=== PATIENT | male | born 1945 | race Caucasian/White ===

== ENCOUNTER → 2019-05-08 | Outpatient (CLI) | payer MEDICARE ==
--- NOTE | 2019-05-08 15:08 | US ---
EXAMINATION TYPE: US kidneys/renal and bladder DATE OF EXAM: 05/08/2019 COMPARISON: NONE CLINICAL HISTORY: R31.29 microscopic hematuria, N18.3. No pain at this time. Abnormal labs. Microsc opic hematuria. EXAM MEASUREMENTS: Right Kidney: 8.6 x 4.8 x 4.3 cm Left Kidney: 10.1 x 4.4 x 5.1 cm Right Kidney: Echogenic nonshadowing focus- 0.5 cm lower pole. Lower pole cystic appearing lesion - 1.5 x 1.5 x 1.5 cm. Left Kidney: Cystic appearing lesion in lower pole renal sinus= 1.5 x 1.4 x 2.0 cm. Echogenic foci v isualized, largest = 0.5 cm. Bladder: Anechoic. Bladder fold seen. Lesion seen adjacent to right wall, possible polyp or neoplas m = 0.5 x 0.6 cm Bilateral Jets seen IMPRESSION: 1. Nodular 5 mm lesion of the right lateral urinary bladder wall. Direct visualization is recommended to assess for polyp or neoplasm. 2. Bilateral nonobstructing renal calculi and simple appearing renal cysts.
== END | disposition home or self-care (01) ==
LOC: RADUSWWP 13:56
PROVIDERS: ATTEND Internal Medicine
DX: N20.0 Calculus of kidney (principal); N28.1 Cyst of kidney, acquired; N32.89 Other specified disorders of bladder
CPT/HCPCS: 76770

== ENCOUNTER 2019-05-17 11:52 | Day surgery (SDC) | payer MEDICARE ==
[2019-05-16 08:24] VITALS: BMI 20.5
[~2019-05-17 11:52] MED LIST: LACTATED RINGERS 1,000 ML IV SCH
[2019-05-17 12:25] VITALS: RESP 16; TEMP 97.4
[2019-05-17] MEDS ORDERED: LIDOCAINE 1% 20 ML VIAL (10MG/ML) FOR IV START INTRADERMA ONE (12:34)
[2019-05-17] MEDS ORDERED: PROPOFOL 10 MG/ML 20 ML VIAL IV ONE (13:03)
--- NOTE | 2019-05-17 13:26 | P.PCN ---
Date of Procedure: 05/17/19 Procedure(s) Performed: BRIEF HISTORY: Patient is a 74-year-old pleasant male scheduled for an elective colonoscopy as a part of evaluation of prior history of colon polyps. f PROCEDURE PERFORMED: Colonoscopy with biopsy. PREOPERATIVE DIAGNOSIS: History of colon polyps. IV sedation per Anesthesia. PROCEDURE: After informed consent was obtained, the patient, was brought into the endoscopy unit. IV sedation was administered by Anesthesia under continuous monitoring. Digital rectal examination was normal. Initially the Olympus CF-160 flexible video colonoscope was then inserted in the rectum, gradually advanced into the cecum without any difficulty. Careful examination was performed as the scope was gradually being withdrawn. Ileocecal valve and the appendiceal orifice were visualized and appeared normal. Prep was excellent. Mucosa of the cecum, ascending colon, transverse colon, descending colon, appeared normal. The sigmoid: There was a 3 minute a polyp that was removed by cold biopsy. Rest of the sigmoid colon, and rectum appeared normal. Scattered sigmoid diverticulosis seen. Retroflexion was performed in the rectum and no lesions were seen. The patient tolerated the procedure well. IMPRESSION: 3 mm sigmoid colon polyp status post removal by cold biopsy Scattered sigmoidal diverticulosis RECOMMENDATIONS: Findings of this examination were discussed with the patient as well as his family. He was advised to follow with the biopsy results. He'll have a repeat surveillance colonoscopy in 5 years from now based the biopsy results.
[2019-05-17 13:43] VITALS: BP 125/68; PULSE 59
== END 2019-05-17 14:09 | disposition home or self-care (01) ==
LOC: ORWHC2ENDO 11:52
PROVIDERS: ATTEND Internal Medicine Gastroenterology
DX: Z12.11 Encounter for screening for malignant neoplasm of colon (principal); K63.5 Polyp of colon; K57.30 Diverticulosis of large intestine without perforation or abscess without bleeding; Z86.010 Personal history of colon polyps; I49.1 Atrial premature depolarization; M19.90 Unspecified osteoarthritis, unspecified site; Z88.0 Allergy status to penicillin; Z88.1 Allergy status to other antibiotic agents; Z79.82 Long term (current) use of aspirin; Z98.890 Other specified postprocedural states
CPT/HCPCS: 88305; 45380; J2704

== ENCOUNTER 2020-03-06 19:31 | Emergency (ER) | payer MEDICARE ==
[2020-03-06] MEDS ORDERED: DIPH,PERTUS(ACELL)TETVAC-LF 0.5 ML VIAL IM ONE (20:16)
[2020-03-06] MEDS ORDERED: LIDOCAINE 1% INJ 10MG/ML (20 ML MDV) SQ STA (20:16)
--- NOTE | 2020-03-06 20:34 | ED ---
General Adult HPI - General Chief complaint: Wound/Laceration Stated complaint: R Finger Lac Time Seen by Provider: 03/06/20 20:05 Source: patient, RN notes reviewed, old records reviewed Mode of arrival: ambulatory Limitations: no limitations - History of Present Illness Initial comments: 75-year-old male patient with the chief complaint of laceration to distal index finger on right hand. Patient was a poorly cutting his head is using a hedge clipper he did have gloves on when he accidentally cut through the [place] patient is a superficial laceration to the distal aspect of his digit. Full range of motion of digit. No tenderness the area. No other injury. Systemic: Pt denies fatigue, fever/chills, rash. Pt denies weakness, night sweats, weight loss. Neuro: Pt denies headache, visual disturbances, syncope or pre-syncope. HEENT: Pt denies ocular discharge or irritation, otalgia, rhinorrhea, pharyngitis or notable lymphadenopathy. Cardiopulmonary: Pt denies chest pain, SOB, heart palpitations, dyspnea on exertion. Abdominal/GI: Pt denies abdominal pain, n/v/d. : Pt denies dysuria, burning w/ urination, frequency/urgency. Denies new onset urinary or bowel incontinence. MSK: Pt denies myalgia, loss of strength or function in extremities. Neuro: Pt denies new onset weakness, paresthesias. - Related Data Home Medications Medication Instructions Recorded Confirmed Multivitamin/Iron/Folic Acid 1 tab PO DAILY 10/08/13 05/17/19 [Centrum Complete Multivit Tab] Aspirin [Adult Low Dose Aspirin EC] 81 mg PO DAILY 05/16/19 05/17/19 Allergies Allergy/AdvReac Type Severity Reaction Status Date / Time cephalexin monohydrate Allergy Itching Verified 03/06/20 19:45 [From Keflex] clindamycin Allergy Itching Verified 03/06/20 19:45 erythromycin base Allergy Rash/Hives Verified 03/06/20 19:45 [Erythromycin Base] Penicillins Allergy Unknown Verified 03/06/20 19:45 Childhood tetracycline [Tetracycline] Allergy Rash/Hives Verified 03/06/20 19:45 Review of Systems ROS Statement: Those systems with pertinent positive or pertinent negative responses have been documented in the HPI. ROS Other: All systems not noted in ROS Statement are negative. Past Medical History Past Medical History: Cancer, GERD/Reflux, Osteoarthritis (OA), Syncope Additional Past Medical History / Comment(s): HX RENAL CALCULI, DECREASED GFR., BPH, PAC'S, GUILLAIN-BARRE, HX COLON POLYPS, BASAL CELL SKIN CANCER. History of Any Multi-Drug Resistant Organisms: None Reported Past Surgical History: Joint Replacement, Orthopedic Surgery, Tonsillectomy Additional Past Surgical History / Comment(s): BILATERAL HIP REPLACEMENTS, LEFT ELBOW FX SURGERY, DRAINAGE OF ABSCESS IN ABDOMEN Past Anesthesia/Blood Transfusion Reactions: Motion Sickness, Postoperative Nausea & Vomiting (PONV) Additional Past Anesthesia/Blood Transfusion Reaction / Comment(s): "SENSITIVE TO NARCOTICS" Past Psychological History: No Psychological Hx Reported Smoking Status: Never smoker Past Alcohol Use History: Rare Past Drug Use History: None Reported - Past Family History Mother Additional Family Medical History / Comment(s): TB, Sister(s) Family Medical History: Cancer Additional Family Medical History / Comment(s): BREAST CANCER General Exam - General Exam Comments Initial Comments: Constitutional: NAD, AOX3, Pt has pleasant affect. HEENT: NC/AT, trachea midline, neck supple, no lymphadenopathy. External ears appear normal, without discharge. Mucous membranes moist. EOM intact. There is no scleral icterus. No pallor noted. Cardiopulmonary: RRR, no murmurs, rubs or gallops, no JVD noted. Lungs CTAB. Abdominal exam: Abdomen soft and non-distended. Neuro: CN II-XII grossly intact. MSK: 1 cm laceration to the distal aspect of the second digit of the left hand. Full active range of motion of digit. Laceration is irrigated approximately 2 simple interrupted sutures. Capillary refill <2 seconds. Limitations: no limitations Course Vital Signs 03/06/20 03/06/20 19:41 21:22 Temperature 98.1 F 97.8 F Pulse Rate 72 69 Respiratory 20 18 Rate Blood Pressure 152/90 170/97 O2 Sat by Pulse 99 100 Oximetry Medical Decision Making - Medical Decision Making 75-year-old male patient was seen for laceration. Patient was irrigated and repaired. Patient tetanus updated. Will be discharged with return precautions. Case discussed with Dr. Blake. Disposition Clinical Impression: Laceration Disposition: HOME SELF-CARE Condition: Stable Instructions (If sedation given, give patient instructions): Laceration (ED) Additional Instructions: Follow-up with primary care provider tomorrow. Return to ER if any worsening symptoms. Return for suture removal in 7-10 days. Monitor for signs of infection, redness, drainage, worsening pain. If these symptoms occur then return to emergency department. Is patient prescribed a controlled substance at d/c from ED?: No Referrals: Wesly Byrd MD [Primary Care Provider] - 1-2 days
[2020-03-06] MEDS ORDERED: BACITRACIN OINT 1 EACH PACKET TOPICAL ONE (21:11)
[2020-03-06 21:24] VITALS: BP 170/97; PULSE 69; RESP 18; TEMP 97.8
== END 2020-03-06 21:22 | disposition home or self-care (01) ==
LOC: EC 19:31
DX: S61.210A Laceration without foreign body of right index finger without damage to nail, initial encounter (principal); M19.90 Unspecified osteoarthritis, unspecified site; Z88.1 Allergy status to other antibiotic agents; Z23 Encounter for immunization; Z88.0 Allergy status to penicillin; Z85.828 Personal history of other malignant neoplasm of skin; Z96.643 Presence of artificial hip joint, bilateral; W26.8XXA Contact with other sharp object(s), not elsewhere classified, initial encounter; Y93.89 Activity, other specified; Y92.89 Other specified places as the place of occurrence of the external cause
CPT/HCPCS: 90715; 90471; 99283; 12001; J2001

== ENCOUNTER → 2020-07-23 | Outpatient (CLI) | payer MEDICARE ==
--- NOTE | 2020-07-23 12:29 | P.SLEEP ---
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 I saw this patient approximately 3 years ago and his sleep center. At time the patient was having difficulties with sleep quality and he was reporting some fatigue upon arouse in the morning. He reported this. Sleep disturbance going on for many years and things got worse after that he retired. 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 At that time, his sleep study was done on 06/30/2017 and the patient was found to have mild snoring without evidence of any significant sleep breathing disorder. He had an AHI of 1.9. No evidence of any nocturnal oxygen desaturation. His sleep efficiency was adequate at 86% and he had adequate sleep architecture with some mild over representation of stage II sleep and diminished delta wave and REM. He did have some minimal occasional arousals and these were Castro arousals. As such, I do not see the need for any further treatment. I suggested the patient treat his comorbidities and improve his sleep hygiene measures and the patient is known to have some chronic pain and prostatism liver probably contributing to his nocturnal arousals. His overall sleep disease as stated with 86% and he was able to generate around 6 hours of sleep. No CPAP therapy was offered. On today's evaluation, the patient is coming in with similar symptoms. He still think that he is unable to generate enough number of hours of sleep that will make him refreshed during the day. He is expecting at least 7-8 hours of sleep. He goes to bed at various times and he tries to go to sleep somewhat between 9:00 and sometimes as far as 11 PM. Nevertheless, he is unable to generate sleep immediately and sometimes takes up to 45 minutes to fall sleep and he wakes up frequently middle of the night mainly to use the bathroom. He is not sure whether urination is doing management it's waking him up, however was awake, tries to go to the bathroom and has small amount of urine. He gets up at around 5:00 and sometimes he tries to go back to sleep and ultimately gets out of bed at around 7:30 AM in the morning. He is reportedly on of morning headaches. He is fatigued during the day. During his recent stay in the [facility], he got infected with a tick and further investigation including blood work rule out the possibility of Lyme's disease. He is covid 19 negative. He has no other major comorbidities. No anxiety. No depression.no recent weight gain is about 5 pounds over this past 3 years. He sometimes tries to take naps during the day that get him more refreshed. No excessive utilization of alcoholic beverages or caffeinated beverages. No restlessness in lower extremities. No grinding of the teeth. No bruxism. No head trauma. No CVA. He was off her trazodone by his primary care physician which she did not take. Review of Systems Constitutional: Reports daytime sleepiness, Reports fatigue Eyes: denies as per HPI, denies blurred vision, denies bulging eye, denies decreased vision, denies diplopia, denies discharge, denies dry eye, denies irritation, denies itching, denies pain, denies photophobia, denies loss of peripheral vision, denies loss of vision, denies tunnel vision/blind spots Ears, nose, mouth and throat: Denies headache, Denies sore throat Cardiovascular: Denies chest pain, Denies shortness of breath Respiratory: Reports snoring Gastrointestinal: Reports as per HPI Genitourinary: Reports as per HPI Musculoskeletal: Reports as per HPI Musculoskeletal: absent: ankle pain, ankle stiffness, ankle swelling Integumentary: Reports as per HPI Neurological: Reports as per HPI Psychiatric: Reports as per HPI Endocrine: Reports fatigue Hematologic/Lymphatic: Reports as per HPI Allergic/Immunologic: Reports as per HPI Past Medical History Past Medical History: Cancer, GERD/Reflux, Osteoarthritis (OA), Syncope Additional Past Medical History / Comment(s): HX RENAL CALCULI, DECREASED GFR., BPH, PAC'S, GUILLAIN-BARRE, HX COLON POLYPS, BASAL CELL SKIN CANCER. History of Any Multi-Drug Resistant Organisms: None Reported Past Surgical History: Joint Replacement, Orthopedic Surgery, Tonsillectomy Additional Past Surgical History / Comment(s): BILATERAL HIP REPLACEMENTS, LEFT ELBOW FX SURGERY, DRAINAGE OF ABSCESS IN ABDOMEN Past Anesthesia/Blood Transfusion Reactions: Motion Sickness, Postoperative Nausea & Vomiting (PONV) Additional Past Anesthesia/Blood Transfusion Reaction / Comment(s): "SENSITIVE TO NARCOTICS" Past Psychological History: No Psychological Hx Reported Smoking Status: Never smoker Past Alcohol Use History: Rare Past Drug Use History: None Reported - Past Family History Mother Additional Family Medical History / Comment(s): TB, Sister(s) Family Medical History: Cancer Additional Family Medical History / Comment(s): BREAST CANCER Medications and Allergies Home Medications Medication Instructions Recorded Confirmed Type Multivitamin/Iron/Folic Acid 1 tab PO DAILY 10/08/13 05/17/19 History [Centrum Complete Multivit Tab] Aspirin [Adult Low Dose Aspirin EC] 81 mg PO DAILY 05/16/19 05/17/19 History Allergies Allergy/AdvReac Type Severity Reaction Status Date / Time cephalexin monohydrate Allergy Itching Verified 03/06/20 19:45 [From Keflex] clindamycin Allergy Itching Verified 03/06/20 19:45 erythromycin base Allergy Rash/Hives Verified 03/06/20 19:45 [Erythromycin Base] Penicillins Allergy Unknown Verified 03/06/20 19:45 Childhood tetracycline [Tetracycline] Allergy Rash/Hives Verified 03/06/20 19:45 Physical Exam The patient appeared well nourished and normally developed. Vital signs as documented. Head exam is unremarkable. No scleral icterus or corneal arcus no lara. Neck is without jugular venous distension, thyromegaly, or carotid bruits. Carotid upstrokes are brisk bilaterally. Lungs are clear to auscultation and percussion. Cardiac exam reveals the PMI to be normally sized and situated. Rhythm is regular. First and second heart sounds normal. No murmurs, rubs or gallops. Abdominal exam reveals normal bowel sounds, no masses, no organomegaly and no aortic enlargement. Extremities are nonedematous and both femoral and pedal pulses are normal.Examination of the skin revealed no evidence of significant rashes, suspicious appearing nevi or other concerning lesions.Neurologically, the patient is awake and alert and the patient does not have any focal neurological deficit. Cranial nerves are essentially intact. Assessment and Plan Plan: 1 chronic fatigue with some limited sleepiness and the patient has an [place] score of 4. 2 primary snoring without evidence of significant sleep breathing disorder based on his sleep study this was done in May 2017 3 remote history of Guillain-Vizcaino disease 4 symptoms of prostatism Plan I personally do not see any major issue in the patient's sleep quality. I reviewed his sleep study that was done on 06/30/2017 and a sleep study showed typical aging associated decrease in the amount of slow-wave sleep and REM sleep and increased and stage II non-REM sleep. He did have some increased number of spontaneous arousals and this is not unusual at his age. The patient does not have any advance phase syndrome. He is retired and he is sometimes unable to maintain a regular sleep wake cycle and schedule. He does not have any comorbidities such as obstructive sleep apnea, central sleep apnea, congestion heart failure or any other neurologic disorder. I think there may be a issue with his perception of sleep. Note that based on various studies, patient's age 55-84 revealed that there sleep is only fair or poor quality. I do not see the need for any rheumatologic treatment at this point in time. He needs to work on implementing good sleep hygiene measures. He needs to get into an exercise program. Avoid late dinners and late showers. Avoid late alcoholic beverages and afternoon or caffeinated beverages. Needs to see urology regarding treatment of his BPH which would improve his sleep maintenance. Follow-up with primary care physician. Sleep Note - Sleep Data Previous Sleep Study: Yes - Sleep Note Sleep Note: Temperature: 96 3 Pulse Rate: 88 Respiratory Rate:16 Blood Pressure: 140/82 SpO2: 99% Height: 5feet and 9 inches Weight: 155 pounds BMI: 22.8 Neck Circumference: 15 [place] score is only at 4
== END | disposition home or self-care (01) ==
LOC: SLEEP 10:19
PROVIDERS: ATTEND Internal Medicine Critical Care Medicine
DX: R53.82 Chronic fatigue, unspecified (principal); Z88.1 Allergy status to other antibiotic agents; Z88.0 Allergy status to penicillin; Z88.8 Allergy status to other drugs, medicaments and biological substances; Z79.899 Other long term (current) drug therapy; Z79.82 Long term (current) use of aspirin
CPT/HCPCS: 99211

== ENCOUNTER → 2020-10-31 | Outpatient (CLI) | payer MEDICARE | END | disposition home or self-care (01) | LOC: LABWHC1 10:03 | PROVIDERS: ATTEND Urology | DX: R97.20 Elevated prostate specific antigen [PSA] (principal) | CPT/HCPCS: 36415; 84153 ==

== ENCOUNTER 2021-05-29 07:41 | Day surgery (SDC) | payer MEDICARE ==
[2021-05-27 11:00] VITALS: BMI 20.3
[2021-05-29 08:03] VITALS: TEMP 97.2
[2021-05-29] MEDS ORDERED: PROPOFOL 10 MG/ML 20 ML VIAL IV ONE (08:43)
--- NOTE | 2021-05-29 09:07 | P.PCN ---
Date of Procedure: 05/29/21 Procedure(s) Performed: BRIEF HISTORY: Patient is a 76-year-old pleasant white male scheduled for an elective colonoscopy as a part of evaluation of prior history of colon polyps. PROCEDURE PERFORMED: Colonoscopy with biopsy. PREOPERATIVE DIAGNOSIS: History of colon polyps. IV sedation per Anesthesia. PROCEDURE: After informed consent was obtained, the patient, was brought into the endoscopy unit. IV sedation was administered by Anesthesia under continuous monitoring. Digital rectal examination was normal. Initially the Olympus CF-160 flexible video colonoscope was then inserted in the rectum, gradually advanced into the cecum without any difficulty. Careful examination was performed as the scope was gradually being withdrawn. Ileocecal valve and the appendiceal orifice were visualized and appeared normal. Prep was excellent. Mucosa of the cecum, appeared normal. In the ascending colon there was a 3 mm sessile polyp that was removed by cold biopsy. Rest of the ascending colon, transverse colon, descending colon, sigmoid colon, and rectum appeared normal. In the distal rectum there was a 2 mm sessile polyp removed by cold biopsy Scattered sigmoid diverticula seen. Retroflexion was performed in the rectum and small internal hemorrhoids were seen. The patient tolerated the procedure well. IMPRESSION: 3 mm sessile ascending colon polyp status post biopsy 2 mm sessile distal rectal polyp status post biopsy Scattered sigmoid diverticula cyst Small internal hemorrhoids RECOMMENDATIONS: Findings of this examination were discussed with the patient as well as his family. He was advised to follow with the biopsy results. If the biopsy reveals adenoma he can have a repeat colonoscopy in 5 years..
[2021-05-29 09:53] VITALS: BP 156/80; PULSE 60; RESP 16
== END 2021-05-29 10:00 | disposition home or self-care (01) ==
LOC: ORWHC2ENDO 07:41
PROVIDERS: ATTEND Internal Medicine Gastroenterology
DX: Z12.11 Encounter for screening for malignant neoplasm of colon (principal); D12.2 Benign neoplasm of ascending colon; K63.5 Polyp of colon; Z86.010 Personal history of colon polyps; K57.30 Diverticulosis of large intestine without perforation or abscess without bleeding; K21.9 Gastro-esophageal reflux disease without esophagitis; K64.8 Other hemorrhoids; Z87.898 Personal history of other specified conditions; Z79.82 Long term (current) use of aspirin; Z88.1 Allergy status to other antibiotic agents; Z88.0 Allergy status to penicillin
CPT/HCPCS: 88305; 45380; J2704

== ENCOUNTER → 2021-11-05 | Outpatient (CLI) | payer MEDICARE | END | disposition home or self-care (01) | LOC: LABWHC1 14:04 | PROVIDERS: ATTEND Urology | DX: R97.20 Elevated prostate specific antigen [PSA] (principal) | CPT/HCPCS: 36415; 84153 ==

== ENCOUNTER → 2022-09-22 | Outpatient (CLI) | payer MEDICARE ==
--- NOTE | 2022-09-22 11:41 | NM ---
EXAMINATION TYPE: NM stress cardiolite complete DATE OF EXAM: 09/22/2022 COMPARISON: NONE HISTORY: Chest pain TECHNIQUE: After the intravenous administration of 10.0 mCi Tc 99m Sestamibi - Rest images obtained 45 minutes post injection. The patient exercised using a ORTEGA protocol and 1 minute prior to peak exercise was injected with 25.0 mCi Tc 99m Sestamibi - Stress images obtained 15 minutes post injecti on. FINDINGS: Targeted heart rate was achieved during performance of the study. Review of stress and rest SPECT yadira ges demonstrates no distinct perfusion abnormality. Gated analysis shows normal wall motion with an estimated left ventricular ejection fraction of 60 %. IMPRESSION: No scintigraphic evidence for reversible ischemia
--- NOTE | 2022-09-23 09:35 | CA ---
Exercise Nuclear Stress Test Report Name: Munira Rios Exam Date: 09/22/2022 09:34 Exam Location: [facility] Ht (in): 70 Wt (lb): 145 BSA: 1.82 Ordering Phys: Alexandra Marsh MD Referring Phys: Maximo, Technologist: Figueora Lezama Age: 77 Gender: M : 1945 Procedure CPT: Indications: I25.10 heart disease ICD-10 Codes: Patient History: Medications: LEVOTHYROXINE, ASPIRIN, ATORVASTATIN, CENTRUM Meds past 24 hrs: Pretest Chest Pain: STRESS TEST Elpidio Protocol Exercise Duration (min:sec): 07:[address] Depressions (mm): Angina Score: Roblero Score: Resting HR (bpm): 60 Peak HR (bpm): 133 Resting BP (mmHg): 151 / 95 Peak BP (mmHg): 215 / 93 MPHR: 145 Target HR: 123 % MPHR: 92 METS: 9.4 Total Dose: Peak Dose: Atropine: Double Product: 26210 BP Response: Stress Termination: TARGET HR REACHED/MAX EXERTION Stress Symptoms: NO SYMPTOMS Stress Summary: ECG ANALYSIS Resting ECG: Stress ECG: CONCLUSIONS Excellent exercise tolerance Normal EKG in response to exercise Dr. Long Alicia MD (Electronically Signed) Final Date: 23 September 2022 09:34
== END | disposition home or self-care (01) ==
LOC: RADNMMAIN 08:03
PROVIDERS: ATTEND Internal Medicine
DX: I25.10 Atherosclerotic heart disease of native coronary artery without angina pectoris (principal)
CPT/HCPCS: 93017; 78452; A9500

== ENCOUNTER → 2023-12-10 | Outpatient (CLI) | payer MEDICARE ==
--- NOTE | 2023-12-10 16:57 | CT ---
EXAMINATION TYPE: CT ChestAbdPelvis wo con CT DLP: 415.7 mGycm, Automated exposure control for dose reduction was used. DATE OF EXAM: 12/10/2023 3:52 PM COMPARISON: CT abdomen and pelvis 08/02/2015, 07/01/2015 CLINICAL INDICATION:Male, 78 years old with history of D47.2 MONOCLONAL GAMMOPATHY,R53.82 FATIQUE; PH H, Not feeling well, fatigue and abnormal lab work. Technique: Multiple axial images of the chest, abdomen, and pelvis were obtained without the administ ration of intravenous or oral contrast. This appears limits evaluation. Two-dimensional coronal and s agittal reconstructions were obtained. Findings: CHEST: LUNGS/ PLEURA: No pleural effusion, pneumothorax, or focal consolidation. Slightly increased posterio r right lower lobe grouped reticular nodular opacities measuring up to 6 mm (series 4, image 54 throu gh 56). AIRWAY: Patent and unremarkable.. HEART: Size within normal limits. No pericardial effusion. MEDIASTINUM: No gross evidence of adenopathy. VASCULATURE: No aortic aneurysm. MUSCULOSKELETAL: No acute osseous abnormalities. Periphery calcified 1.6 cm calcification along the a nterior aspect of the right humeral head. Favored to represent calcific tendinosis. No aggressive oss eous lesion. Mild S-shaped scoliotic curvature of the thoracolumbar spine. SOFT TISSUES/LYMPH NODES: Unremarkable. LOWER NECK: No significant findings. ABDOMEN: ABDOMEN LIVER: Unremarkable GALLBLADDER AND BILE DUCTS: Unremarkable. PANCREAS: Unremarkable. SPLEEN: Unremarkable. ADRENAL GLANDS: Unremarkable. KIDNEYS AND URETERS: No evidence of hydronephrosis or renal calculus. Right renal cyst measuring up t o 1.5 cm. Left renal sinus cyst identified measuring up to 2.7 cm. PELVIS BLADDER: Obscured by streak artifact from hip prosthesis. REPRODUCTIVE: Partially visualized and appears enlarged measuring up to 5.6 cm. ABDOMEN & PELVIS STOMACH AND BOWEL: Stomach and duodenum are unremarkable. Few scattered colonic diverticula. No focal bowel wall thickening or surrounding inflammatory changes identified within limitations of a noncont rast exam. Mild amount of stool present throughout the colon. No evidence of bowel obstruction. PERITONEUM: No evidence of pneumoperitoneum or free fluid. VASCULATURE: Mild atherosclerotic calcifications are present throughout the abdominal aorta and its b ranches. No abdominal aortic aneurysm. MUSCULOSKELETAL: No acute osseous abnormalities. Mild S-shaped scoliotic curvature of the thoracolumb ar spine. No aggressive osseous lesion. Postsurgical changes from bilateral total hip arthroplasty. M ultilevel degenerative disc disease most pronounced involving the lower lumbar spine. Few foci of gas extending from degenerative disc into the iliopsoas muscle on the right the L3 vertebral body (serie s 3, image 36). No organized fluid collection identified. LYMPH NODES: Stable enlarged ovoid right inguinal lymph nodes measuring up to 1.9 cm (series 3, image 132). SOFT TISSUE/ABDOMINAL WALL: Tiny fat filled umbilical hernia. IMPRESSION: 1. No CT evidence for acute process within the limitations of a noncontrast exam. 2. Degenerative disc disease with a few foci of gas extending into the right iliopsoas muscle at the level of L3 vertebral body from disc degeneration. No organized fluid collection identified. 3. Subtly increased grouped reticular nodular opacities within the dependent portion of the right lo wer lobe from 2016 exam. Favored to represent infectious/inflammatory bronchiolitis. 4. Stable enlarged 1.9 cm right inguinal lymph node dating back to 2016. No new lymphadenopathy ident ified.
== END | disposition home or self-care (01) ==
LOC: RADCTMAIN 15:31
PROVIDERS: ATTEND Internal Medicine Hematology & Oncology
DX: D47.2 Monoclonal gammopathy (principal); M51.36 Other intervertebral disc degeneration, lumbar region; R59.0 Localized enlarged lymph nodes; M12.9 Arthropathy, unspecified; R53.81 Other malaise; E78.5 Hyperlipidemia, unspecified
CPT/HCPCS: 71250; 74176

== ENCOUNTER → 2024-04-20 | Outpatient (CLI) | payer MEDICARE ==
--- NOTE | 2024-04-20 14:00 | MR ---
EXAMINATION TYPE: MR brain wo con DATE OF EXAM: 04/20/2024 12:25 PM COMPARISON: None. CLINICAL INDICATION: Male, 79 years old with history of I67.9 CARDIOVASCULAR DISEASE I63.9, Memory lo ss TECHNIQUE: Multi planar multi sequence imaging of the brain. FINDINGS: The ventricles, basal cisterns and sulci overlying the cerebral convexities are mildly enlarged. There is evidence of mild periventricular white matter ischemic demyelination. Remote deep white matter insults are also noted. No acute edema is seen on diffusion weighted imaging. There is no evidence for midline shift or mass effect. Acute intracranial hemorrhage or extra-axial collection is not evident. The paranasal sinuses and mastoid air cells are well-aerated. 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 No acute intracranial process at this time. [facility], , 04/20/2024 1:57 PM
== END | disposition home or self-care (01) ==
LOC: RADMRIMAIN 11:32
PROVIDERS: ATTEND Psychiatry & Neurology Neurology
DX: I67.9 Cerebrovascular disease, unspecified (principal); I63.9 Cerebral infarction, unspecified; I67.82 Cerebral ischemia; I62.9 Nontraumatic intracranial hemorrhage, unspecified
CPT/HCPCS: 70551